=== PATIENT | male | born 1960 | race Caucasian/White ===

== ENCOUNTER 2021-12-20 02:59 | Emergency (ER) | payer BC ==
[~2021-12-20] VITALS: Ht 190.5 cm; Wt 90.9 kg
[2021-12-20] MEDS ORDERED: LIDOcaine 2% 10ml TOPICAL JELLY (Urojet) TP ONE (03:55)
[2021-12-20 04:47] VITALS: BP 126/98
[2021-12-20 04:47] LABS: CLARITY,URINE CLEAR (Clear); COLOR,URINE YELLOW (Yellow); GLUCOSE, URINE NEGATIVE (Neg); KETONES,URINE NEGATIVE (Neg); LEUKOCYTE ESTERASE ,URINE NEGATIVE (Neg); NITRITES, URINE NEGATIVE (Neg); OCCULT BLOOD,URINE NEGATIVE (Neg); PH,URINE 6.5 (4.8-8.0); PROTEIN,URINE NEGATIVE (Neg); UROBILINOGEN,URINE 0.2 E.U/dL (0.2-1.0)
--- NOTE | 2021-12-20 04:49 | NUR ---
pt was educated on catheter care, and how to empty a leg bag. pt was able to demonstrate how to empty the bag. pt was educated on infection prevention and cleaning the catheter and peggy care
[2021-12-20 04:55] LABS: UA COLLECTION TYPE NON-SPECIFIED
[2021-12-20] MEDS ORDERED: ONDA4TAB12 PO (14:17)
[2021-12-20] MEDS ORDERED: HYDR-3965 PO (14:17)
== END 2021-12-20 04:51 | disposition home or self-care (01) ==
LOC: ER 03:00
DX: R33.9 Retention of urine, unspecified (principal)
CPT/HCPCS: 51702; 81003; 99284

== ENCOUNTER 2021-12-20 12:43 | Emergency (ER) | payer BC ==
[~2021-12-20] VITALS: Ht 190.5 cm; Wt 90.9 kg
[2021-12-20 12:47] VITALS: BP 107/71
[2021-12-20] MEDS ORDERED: morphine 4 MG/ML inj SYRINge IM ONE (13:40)
[2021-12-20] MEDS ORDERED: ondansetron 4mg rapidly disintigrating tab PO ONE (13:40)
[2021-12-20] MEDS ORDERED: HYDR-3965 PO (14:17)
[2021-12-20] MEDS ORDERED: ONDA4TAB12 PO (14:17)
== END 2021-12-20 14:35 | disposition home or self-care (01) ==
LOC: ER 12:44
DX: T83.098A Other mechanical complication of other urinary catheter, initial encounter (principal); R33.9 Retention of urine, unspecified; Z79.899 Other long term (current) drug therapy
CPT/HCPCS: 96372; 99283; J2270